=== PATIENT | female | born 1970 ===

== ENCOUNTER 2018-07-14 09:32 | Emergency (ER) | payer OTHER ==
[~2018-07-14] VITALS: Ht 160 cm; Wt 57.6 kg
[2018-07-14] MEDS ORDERED: ALBUTEROL0.63 MG/3 (09:48)
[2018-07-14] MEDS ORDERED: BUDEO.25 (09:48)
[2018-07-14] MEDS ORDERED: TESSALON PERLE100 M1 (09:48)
== END 2018-07-14 15:46 | disposition home or self-care (01) ==
LOC: ER 09:32
DX: K52.9 Noninfective gastroenteritis and colitis, unspecified (principal)